=== PATIENT | male | born 1960 | race Caucasian/White ===

== ENCOUNTER → 2021-04-08 | Day surgery (SDC) | payer OTHER ==
[~2021-04-08] VITALS: Ht 180.3 cm; Wt 88.9 kg
[~2021-04-08] MED LIST: AMLODIPINE-BEN1 EAC4 PO; CINNAMON500 MG PO; MULTIVITAMIN1 EACH PO; VITAMIN E400 UNI4 PO
== END | disposition home or self-care (01) ==
LOC: FAS 08:40
DX: Z12.11 Encounter for screening for malignant neoplasm of colon (principal); E74.89 Other specified disorders of carbohydrate metabolism; I10 Essential (primary) hypertension; E78.5 Hyperlipidemia, unspecified; K21.9 Gastro-esophageal reflux disease without esophagitis; F41.9 Anxiety disorder, unspecified; Z87.891 Personal history of nicotine dependence; Z79.899 Other long term (current) drug therapy
CPT/HCPCS: J2250; J2704; J7120